=== PATIENT | male | born 1950 | race African-American/Black ===

== ENCOUNTER → 2020-02-12 | Outpatient (CLI) | payer OTHER ==
[~2020-02-12] MED LIST: CARDURA2 MG PO; MULTI VITAMIN1 EACH PO; VITAMIN D3100 MCG PO
== END ==
LOC: LAB 09:00
PROVIDERS: ATTEND Student in an Organized Health Care Education/Training Program
DX: Z01.812 Encounter for preprocedural laboratory examination (principal); Z20.828 Contact with and (suspected) exposure to other viral communicable diseases

== ENCOUNTER → 2020-02-14 | Outpatient (CLI) | payer OTHER | LOC: LAB 07:33 | PROVIDERS: ATTEND Specialist | DX: Z01.812 Encounter for preprocedural laboratory examination (principal); Z20.828 Contact with and (suspected) exposure to other viral communicable diseases ==

== ENCOUNTER → 2020-02-14 | Outpatient (CLI) | payer OTHER ==
[~2020-02-14] VITALS: Ht 175.3 cm; Wt 97.5 kg
--- NOTE | 2020-02-16 08:59 | P ---
[facility] [place] [address] PROCEDURE REPORT Name: ELI BADILLO JR Room #: REG JENNY Selvin#: [id number] Admission: 02/14/20 Attend Phys: Maximilian Yadav Discharge: Date of : 52 Report #: [id number] THIS REPORT FOR: cc: Kiki Christensen Shanna R. DO McElhinney, Christian C. MD ~ DATE OF SERVICE: 02/14/2020 PROCEDURE PERFORMED: Colonoscopy with biopsies. HISTORY OF PRESENT ILLNESS: The patient is a 70-year-old male who presents today for routine screening colonoscopy. Denies any symptoms. No family history of colon cancer. DESCRIPTION OF PROCEDURE: The risks and benefits of the procedure were explained to the patient, those risks including but not limited to bleeding, perforation and the risk of sedation. He understood these risks and gave informed consent. Sedation was given using propofol per anesthesia. Next, a digital rectal exam was initially performed, which was normal. Next, using a standard Olympus colonoscope, the scope was placed in the patient's anus and advanced under direct vision to the cecum. The overall prep was excellent. The cecum and ileocecal valve were normal in appearance. In the ascending colon, a 4-mm sessile polyp was noted. This was removed with cold forceps, otherwise normal. The transverse, descending and sigmoid colon were normal. The rectal mucosa was normal. On retroflexion, small nonbleeding internal hemorrhoids were noted. The scope was then withdrawn and the procedure terminated. The patient tolerated the procedure well. IMPRESSION: 1. Small colonic polyp. 2. Small internal hemorrhoids. 3. Otherwise, normal colonoscopy. RECOMMENDATIONS: 1. Await biopsy results. 2. If polyp is hyperplastic, repeat in 10 years; if adenomatous polyp, repeat in 5 years. Thank you for allowing me to participate in his care. <ELECTRONICALLY SIGNED> By: Maximilian Strickland MD 02/16/20 [id number] [id number] Maximilian Strickland MD /nt
--- NOTE | 2020-02-16 16:06 | PATH ---
[facility] [address] [place] [address] PATHOLOGY RPT PROCEDURE Name: ELI GRIMALDO JR Room #: REG CLI Alesha.#: [id number] Admission: 02/14/20 Date of : 52 Discharge: Report #: [id number] Path Case #: [id number] [facility] Accession Number: [id number] . 01 Material submitted: . colon - ASCENDING COLON POLYP. Modifiers: ascending . 01 Clinical history: . SCREENING COLON CANCER . 02 Diagnosis: Polyp, ascending colon polyp, endoscopic biopsy: - Tubular adenoma. - Negative for high-grade dysplasia. (IUV:lory; 02/16/2020) QMS 02/16/2020 1246 Local . 02 Electronically signed: . Jojo Cochran MD, Pathologist NPI- [id number] . 01 Gross description: . The specimen is received in formalin, labeled "Grimaldo, Eli Jr, ascending colon polyp" and consists of 2 fragments of bobby tissue measuring 0.3 x 0.2 cm and 0.6 x 0.3 cm which are entirely submitted in A1. (SDY; 02/15/2020) SYU/SYU 02/15/2020 1621 Local . 02 Pathologist provided ICD-10: D12.2 . 02 CPT . 052963 Specimen Comment: A courtesy copy of this report has been sent to [phone] Specimen Comment: [id number] Specimen Comment: Report sent to / DR FREGOSO Performed at: [address], [place], [place] [id number] MD Varghese Osorio MD Phone: [phone] Performed at: [address] [id number] MD Jojo Cochran MD Phone: [phone]
== END | disposition home or self-care (01) ==
LOC: GI
PROVIDERS: ATTEND Specialist
DX: Z12.11 Encounter for screening for malignant neoplasm of colon (principal); D12.2 Benign neoplasm of ascending colon; K64.8 Other hemorrhoids; E11.9 Type 2 diabetes mellitus without complications; G47.30 Sleep apnea, unspecified; Z98.890 Other specified postprocedural states; Z79.899 Other long term (current) drug therapy; Z87.891 Personal history of nicotine dependence
CPT/HCPCS: 62110; 62900